=== PATIENT | female | born 1995 | race Caucasian/White ===

== ENCOUNTER 2022-09-02 17:21 | Emergency (ER) | payer MEDICAID ==
[~2022-09-02] VITALS: Ht 157.5 cm; Wt 57.0 kg
[2022-09-02 17:25] VITALS: BP 137/88
[2022-09-02] MEDS ORDERED: IBUPROFEN 600MG TABLET PO ONE (19:15)
[2022-09-02] MEDS ORDERED: AMOX1TAB16 MT (19:27)
[2022-09-02] MEDS ORDERED: IBUP-2029 MT (19:27)
== END 2022-09-02 19:54 | disposition home or self-care (01) ==
LOC: ER 17:21
DX: S09.8XXA Other specified injuries of head, initial encounter (principal); Y04.0XXA Assault by unarmed brawl or fight, initial encounter; Y93.89 Activity, other specified; Y92.098 Other place in other non-institutional residence as the place of occurrence of the external cause
CPT/HCPCS: 99283